=== PATIENT | female | born 1935 | race Caucasian/White ===

== ENCOUNTER 2017-03-13 15:53 | Inpatient (IN) | payer MEDICARE, OTHER ==
[2017-03-13] MEDS ORDERED: ALBUTEROL NEB SOL 2.5MG/3ML 1 VIAL SOL NEB PRN (16:20)
[2017-03-13] MEDS ORDERED: SODIUM CHLORIDE 0.9% 500 ML 500 ML IV ONE (17:36)
[2017-03-13] MEDS: CEFTRIAXONE 1 GM (PREMIX) 1 GM/50 ML SOL IV SCH (17:56)
[2017-03-13] MEDS: SODIUM CHLORIDE 0.9% FLUSH 10 ML SOL IV SCH ×2 (17:56→21:01)
[2017-03-13] MEDS: ALBUTEROL/IPRATROPIUM 1 VIAL SOL INH SCH ×2 (18:13→21:24)
[2017-03-13] MEDS: SOLUMEDROL 125 MG/2 ML 125 MG/2 ML PDS IV SCH (21:01)
[2017-03-13] MEDS: AZITHROMYCIN 250 MG TAB PO SCH (21:29)
[2017-03-14 07:19] LABS: BASOPHILS % (AUTO) 0 % (0-3); CALCIUM 8.5 mg/dl (8.5-10.1); EOSINOPHILS % (AUTO) 0 % (0-9); HEMATOCRIT 39 % (35-47); MEAN CORPUSCULAR HGB CONC 32.2 gm/dl (32.0-36.0); MONOCYTES % (AUTO) 1.8 % (0-12); NEUTROPHILS % (AUTO) 92.4 % (37-80); POTASSIUM 3.9 mMol/L (3.5-5.1)
[2017-03-14 07:22] LABS: MEAN CORPUSCULAR VOLUME 80 fL (81-99)
[2017-03-14] MEDS: SODIUM CHLORIDE 0.9% FLUSH 10 ML SOL IV SCH ×4 (07:59→16:06)
[2017-03-14] MEDS: FUROSEMIDE 20 MG TAB PO SCH (08:46)
[2017-03-14] MEDS: ATENOLOL 25 MG TAB PO SCH (08:46)
[2017-03-14] MEDS: LEVOTHYROXINE SODIUM 50 MCG TAB PO SCH (08:47)
[2017-03-14] MEDS: SOLUMEDROL 125 MG/2 ML 125 MG/2 ML PDS IV SCH ×2 (08:47→20:54)
[2017-03-14] MEDS: MULTIVITAMIN2 1 EA TAB PO SCH (08:47)
[2017-03-14] MEDS: AZITHROMYCIN 250 MG TAB PO SCH (08:47)
[2017-03-14] MEDS: ALBUTEROL/IPRATROPIUM 1 VIAL SOL INH SCH ×4 (09:42→20:54)
[2017-03-14 10:39] LABS: APPEARANCE,URINE Clear; BILIRUBIN,URINE 1+ (NEGATIVE); COLOR,URINE Dark yellow; GLUCOSE, URINE (UA) NEGATIVE (NEGATIVE); KETONES,URINE NEGATIVE (NEGATIVE); LEUKOCYTE ESTERASE ,URINE NEGATIVE (NEGATIVE); NITRATE,URINE NEGATIVE (NEGATIVE); OCCULT BLOOD,URINE NEGATIVE (NEG-TRACE); PH,URINE 5.5
[2017-03-14 10:57] LABS: ICTOTEST,URINE NEGATIVE (NEGATIVE); RBC,URINE 0-2 (0-3AV/HPF)
[2017-03-14] MEDS ORDERED: SODIUM CHLORIDE 0.9% 500 ML 500 ML IV ONE (11:40)
[2017-03-14] MEDS: CEFTRIAXONE 1 GM (PREMIX) 1 GM/50 ML SOL IV SCH (16:06)
[2017-03-15] MEDS: SODIUM CHLORIDE 0.9% FLUSH 10 ML SOL IV SCH ×4 (06:43→21:24)
[2017-03-15] MEDS: ALBUTEROL/IPRATROPIUM 1 VIAL SOL INH SCH ×4 (09:44→21:20)
[2017-03-15] MEDS: SOLUMEDROL 125 MG/2 ML 125 MG/2 ML PDS IV SCH ×2 (09:49→21:24)
[2017-03-15] MEDS: LEVOTHYROXINE SODIUM 50 MCG TAB PO SCH (09:50)
[2017-03-15] MEDS: AZITHROMYCIN 250 MG TAB PO SCH (09:50)
[2017-03-15] MEDS: FUROSEMIDE 20 MG TAB PO SCH (09:50)
[2017-03-15] MEDS: MULTIVITAMIN2 1 EA TAB PO SCH (09:50)
[2017-03-15] MEDS: ATENOLOL 25 MG TAB PO SCH (09:50)
[2017-03-15] MEDS: CEFTRIAXONE 1 GM (PREMIX) 1 GM/50 ML SOL IV SCH (15:48)
[2017-03-16] MEDS: SODIUM CHLORIDE 0.9% FLUSH 10 ML SOL IV SCH ×2 (05:35→11:30)
[2017-03-16 07:20] LABS: CALCIUM 8.7 mg/dl (8.5-10.1)
[2017-03-16 07:23] LABS: HEMATOCRIT 38 % (35-47); MEAN CORPUSCULAR HGB CONC 32.1 gm/dl (32.0-36.0)
[2017-03-16 07:31] LABS: MEAN CORPUSCULAR VOLUME 81 fL (81-99)
[2017-03-16 07:42] LABS: LYMPHOCYTES % (MANUAL) 3 % (10-50)
[2017-03-16 07:43] LABS: BASOPHILS % (MANUAL) 0 % (0-3); EOSINOPHILS % (MANUAL) 0 % (0-9); NORMAL RBCS PRESENT
[2017-03-16] MEDS: ALBUTEROL/IPRATROPIUM 1 VIAL SOL INH SCH ×2 (11:30→15:40)
[2017-03-16] MEDS: FUROSEMIDE 20 MG TAB PO SCH (11:31)
[2017-03-16] MEDS: ATENOLOL 25 MG TAB PO SCH (11:31)
[2017-03-16] MEDS: LEVOTHYROXINE SODIUM 50 MCG TAB PO SCH (11:31)
[2017-03-16] MEDS: MULTIVITAMIN2 1 EA TAB PO SCH (11:31)
[2017-03-16] MEDS: AZITHROMYCIN 250 MG TAB PO SCH (11:32)
[2017-03-16 15:43] VITALS: RESP 20
[2017-03-16 16:05] VITALS: PULSE 78; O2SAT 96
[2017-03-16 16:11] VITALS: BP 122/75; TEMP 97.8
== END 2017-03-16 16:35 | disposition home or self-care (01) | DRG 194 ==
LOC: ACUTE CARE 16:08
PROVIDERS: ADMIT Family Medicine; ATTEND Family Medicine
PROC: F02Z1ZZ Dressing Assessment (ICD-10-PCS; principal; 2017-03-16)
PROC: F02Z0ZZ Bathing/Showering Assessment (ICD-10-PCS; 2017-03-16)
PROC: F02Z3ZZ Grooming/Personal Hygiene Assessment (ICD-10-PCS; 2017-03-16)
PROC: F01ZDFZ Gait and/or Balance Assessment using Assistive, Adaptive, Supportive or Protective Equipment (ICD-10-PCS; 2017-03-16)
PROC: F01ZBZZ Bed Mobility Assessment (ICD-10-PCS; 2017-03-16)
PROC: F01ZCZZ Transfer Assessment (ICD-10-PCS; 2017-03-16)
DX: J18.1 Lobar pneumonia, unspecified organism (principal); I50.32 Chronic diastolic (congestive) heart failure; L89.311 Pressure ulcer of right buttock, stage 1; J84.10 Pulmonary fibrosis, unspecified; I11.0 Hypertensive heart disease with heart failure; L89.321 Pressure ulcer of left buttock, stage 1; D51.0 Vitamin B12 deficiency anemia due to intrinsic factor deficiency; R63.4 Abnormal weight loss; R60.9 Edema, unspecified; E78.5 Hyperlipidemia, unspecified; E03.9 Hypothyroidism, unspecified
CPT/HCPCS: 36415; 71260; 80048; 81001; 85007; 85025; 85027; 87040; 94150; 94640; 94664; 99070; J0696; J2930; J7603; J7620; Q9967; A6232

== ENCOUNTER 2017-07-22 22:01 | Emergency (ER) | payer MEDICARE, OTHER ==
[2017-07-22 22:12] VITALS: RESP 20
[2017-07-22 23:09] LABS: HEMATOCRIT 34 % (35-47); MEAN CORPUSCULAR HGB CONC 32.9 gm/dl (32.0-36.0); MEAN CORPUSCULAR VOLUME 83 fL (81-99)
[2017-07-22 23:16] LABS: CALCIUM 8.5 mg/dl (8.5-10.1); POTASSIUM 4.1 mMol/L (3.5-5.1)
[2017-07-22 23:19] LABS: APPEARANCE,URINE Slightly Cloudy; BILIRUBIN,URINE NEGATIVE (NEGATIVE); COLOR,URINE Dark yellow; GLUCOSE, URINE (UA) NEGATIVE (NEGATIVE); KETONES,URINE NEGATIVE (NEGATIVE); LEUKOCYTE ESTERASE ,URINE TRACE (NEGATIVE); NITRATE,URINE NEGATIVE (NEGATIVE); OCCULT BLOOD,URINE NEGATIVE (NEG-TRACE); PH,URINE 5.5
[2017-07-22 23:37] LABS: BASOPHILS % (MANUAL) 0 % (0-3); EOSINOPHILS % (MANUAL) 0 % (0-9); LYMPHOCYTES % (MANUAL) 11 % (10-50); NORMAL RBCS PRESENT
[2017-07-22 23:39] VITALS: BP 114/49; PULSE 70; TEMP 99.9; O2SAT 93
[2017-07-22 23:45] LABS: RBC,URINE 0-1 (0-3AV/HPF)
[2017-07-22] MEDS ORDERED: LEVOFLOXACIN 500 MG TAB PO ONE (23:45)
[2017-07-22] MEDS ORDERED: PREDNISONE 20 MG TAB PO ONE (23:45)
[2017-07-22 23:46] LABS: WBC,URINE 0-2 (0-5AV/HPF)
[2017-07-22] MEDS ORDERED: PREDNISONE 20 MG TAB ONE (23:46)
[2017-07-22] MEDS ORDERED: LEVOFLOXACIN 500 MG TAB ONE (23:46)
== END 2017-07-23 00:15 | disposition home or self-care (01) | DRG 191 ==
LOC: ED 22:01
DX: J47.9 Bronchiectasis, uncomplicated (principal); N39.0 Urinary tract infection, site not specified
CPT/HCPCS: 36415; 71010; 80048; 81001; 85007; 85027; 87804; 99283

== ENCOUNTER 2017-08-18 10:31 | Inpatient (IN) | payer MEDICARE, OTHER ==
[2017-08-18] MEDS ORDERED: ALBUTEROL NEB SOL 2.5MG/3ML 1 VIAL SOL NEB PRN (10:41)
[2017-08-18] MEDS ORDERED: SODIUM CHLORIDE 0.9% 1000ML 1,000 ML IV ONE (10:41)
[2017-08-18 11:28] LABS: BASOPHILS % (AUTO) 2 % (0-3); EOSINOPHILS % (AUTO) 0 % (0-9); HEMATOCRIT 44 % (35-47); MEAN CORPUSCULAR VOLUME 83 fL (81-99); MONOCYTES % (AUTO) 7.2 % (0-12)
[2017-08-18] MEDS: SOLUMEDROL 125 MG/2 ML 125 MG/2 ML PDS IV SCH ×2 (11:37→20:14)
[2017-08-18] MEDS: SODIUM CHLORIDE 0.9% FLUSH 10 ML SOL IV SCH ×2 (11:37→19:34)
[2017-08-18 11:58] LABS: ALBUMIN 2.8 gm/dl (3.4-5.0); CALCIUM 8.7 mg/dl (8.5-10.1); POTASSIUM 3.4 mMol/L (3.5-5.1)
[2017-08-18] MEDS ORDERED: CEFTAZIDIME 1 GM PDS IV SCH (12:00)
[2017-08-18] MEDS ORDERED: ONDANSETRON HCL 4 MG/2 ML SOL IV PRN (12:07)
[2017-08-18] MEDS: CEFTAZIDIME 1 GM PDS IV SCH ×2 (13:02→20:15)
[2017-08-18] MEDS: ALBUTEROL/IPRATROPIUM 1 VIAL SOL INH SCH ×3 (13:02→20:30)
[2017-08-18] MEDS ORDERED: PATIENT EDUCATION 1 MISC PRN (16:00)
[2017-08-18] MEDS ORDERED: POTASSIUM CHLORIDE 2 MEQ/ML SOL IV ONE (17:25)
[2017-08-18] MEDS: SODIUM CHLORIDE 0.45% 1000 ML 1,000 ML with POTASSIUM CHLORIDE 2 MEQ/ML 20 MEQ IV SCH (17:27)
[2017-08-18] MEDS: BUDESONIDE 0.5 MG/2 ML AMPUL.NEB INH SCH (20:22)
[2017-08-18] MEDS: THIAMINE 100 MG TAB PO SCH (20:22)
[2017-08-19] MEDS: SODIUM CHLORIDE 0.45% 1000 ML 1,000 ML with POTASSIUM CHLORIDE 2 MEQ/ML 20 MEQ IV SCH (03:00)
[2017-08-19] MEDS: SODIUM CHLORIDE 0.9% FLUSH 10 ML SOL IV SCH ×4 (03:32→23:16)
[2017-08-19] MEDS: SOLUMEDROL 125 MG/2 ML 125 MG/2 ML PDS IV SCH (03:32)
[2017-08-19] MEDS: CEFTAZIDIME 1 GM PDS IV SCH ×3 (04:37→20:19)
[2017-08-19] MEDS: LEVOTHYROXINE SODIUM 50 MCG TAB PO SCH ×2 (06:47→09:17)
[2017-08-19] MEDS: PREDNISONE 20 MG TAB PO SCH (09:17)
[2017-08-19] MEDS: METOPROLOL SUCCINATE 50 MG ER TAB PO SCH (09:17)
[2017-08-19] MEDS: MULTIVITAMIN2 1 EA TAB PO SCH (09:17)
[2017-08-19] MEDS: THIAMINE 100 MG TAB PO SCH (09:18)
[2017-08-19] MEDS: ALBUTEROL/IPRATROPIUM 1 VIAL SOL INH SCH ×4 (09:19→20:24)
[2017-08-19] MEDS: BUDESONIDE 0.5 MG/2 ML AMPUL.NEB INH SCH ×2 (09:20→20:35)
[2017-08-19 20:57] LABS: MAGNESIUM 2.1 mg/dl (1.8-2.4)
[2017-08-19] MEDS ORDERED: LORAZEPAM 2 MG/ML SOL ONE (23:15)
[2017-08-19] MEDS: LORAZEPAM 2 MG/ML SOL IV PRN (23:16)
[2017-08-20] MEDS: SODIUM CHLORIDE 0.9% FLUSH 10 ML SOL IV SCH ×4 (04:25→20:10)
[2017-08-20] MEDS: CEFTAZIDIME 1 GM PDS IV SCH ×3 (04:25→20:10)
[2017-08-20 07:30] LABS: CALCIUM 8.1 mg/dl (8.5-10.1); HEMATOCRIT 37 % (35-47); MEAN CORPUSCULAR HGB CONC 33.5 gm/dl (32.0-36.0); MEAN CORPUSCULAR VOLUME 82 fL (81-99)
[2017-08-20 08:30] LABS: BASOPHILS % (MANUAL) 0 % (0-3); EOSINOPHILS % (MANUAL) 0 % (0-9); LYMPHOCYTES % (MANUAL) 4 % (10-50); NORMAL RBCS PRESENT
[2017-08-20] MEDS: LEVOTHYROXINE SODIUM 50 MCG TAB PO SCH (08:38)
[2017-08-20] MEDS: METOPROLOL SUCCINATE 50 MG ER TAB PO SCH (08:39)
[2017-08-20] MEDS: PREDNISONE 20 MG TAB PO SCH (08:39)
[2017-08-20] MEDS: MULTIVITAMIN2 1 EA TAB PO SCH (08:39)
[2017-08-20] MEDS ORDERED: QUETIAPINE FUMARATE 25 MG TAB ONE (08:42)
[2017-08-20] MEDS: BUDESONIDE 0.5 MG/2 ML AMPUL.NEB INH SCH ×2 (08:43→21:41)
[2017-08-20] MEDS: ALBUTEROL/IPRATROPIUM 1 VIAL SOL INH SCH ×4 (08:44→21:48)
[2017-08-20] MEDS ORDERED: QUETIAPINE FUMARATE 25 MG TAB PO SCH (09:00)
[2017-08-20] MEDS: THIAMINE 100 MG TAB PO SCH (09:13)
[2017-08-20 09:23] LABS: APPEARANCE,URINE Clear; BILIRUBIN,URINE NEGATIVE (NEGATIVE); COLOR,URINE Yellow; GLUCOSE, URINE (UA) NEGATIVE (NEGATIVE); KETONES,URINE TRACE (NEGATIVE); LEUKOCYTE ESTERASE ,URINE NEGATIVE (NEGATIVE); NITRATE,URINE NEGATIVE (NEGATIVE); OCCULT BLOOD,URINE NEGATIVE (NEG-TRACE); UROBILINOGEN,URINE 0.2 (0.2-1.0 EU)
[2017-08-20 09:37] LABS: RBC,URINE 0-1 (0-3AV/HPF); WBC,URINE 0-3 (0-5AV/HPF)
[2017-08-20] MEDS: QUETIAPINE FUMARATE 25 MG TAB PO SCH (21:41)
[2017-08-21] MEDS: CEFTAZIDIME 1 GM PDS IV SCH ×3 (04:08→19:52)
[2017-08-21] MEDS: SODIUM CHLORIDE 0.9% FLUSH 10 ML SOL IV SCH ×4 (04:08→19:52)
[2017-08-21] MEDS: LEVOTHYROXINE SODIUM 50 MCG TAB PO SCH (06:42)
[2017-08-21] MEDS: THIAMINE 100 MG TAB PO SCH (08:06)
[2017-08-21] MEDS: METOPROLOL SUCCINATE 50 MG ER TAB PO SCH (08:06)
[2017-08-21] MEDS: MULTIVITAMIN2 1 EA TAB PO SCH (08:06)
[2017-08-21] MEDS: ALBUTEROL/IPRATROPIUM 1 VIAL SOL INH SCH ×4 (08:07→20:22)
[2017-08-21] MEDS: BUDESONIDE 0.5 MG/2 ML AMPUL.NEB INH SCH ×2 (08:07→20:01)
[2017-08-21] MEDS: QUETIAPINE FUMARATE 25 MG TAB PO SCH (20:34)
[2017-08-22] MEDS: SODIUM CHLORIDE 0.9% FLUSH 10 ML SOL IV SCH ×3 (04:30→21:20)
[2017-08-22] MEDS: CEFTAZIDIME 1 GM PDS IV SCH ×3 (04:30→20:03)
[2017-08-22] MEDS: LEVOTHYROXINE SODIUM 50 MCG TAB PO SCH (07:23)
[2017-08-22 07:32] LABS: CALCIUM 7.9 mg/dl (8.5-10.1)
[2017-08-22 07:54] LABS: BASOPHILS % (AUTO) 1 % (0-3); EOSINOPHILS % (AUTO) 1 % (0-9); HEMATOCRIT 39 % (35-47); MEAN CORPUSCULAR HGB CONC 31.5 gm/dl (32.0-36.0); MEAN CORPUSCULAR VOLUME 88 fL (81-99); MONOCYTES % (AUTO) 8.7 % (0-12); NEUTROPHILS % (AUTO) 81.2 % (37-80)
[2017-08-22] MEDS: METOPROLOL SUCCINATE 50 MG ER TAB PO SCH (09:11)
[2017-08-22] MEDS: THIAMINE 100 MG TAB PO SCH (09:11)
[2017-08-22] MEDS: MULTIVITAMIN2 1 EA TAB PO SCH (09:11)
[2017-08-22] MEDS: ALBUTEROL/IPRATROPIUM 1 VIAL SOL INH SCH ×4 (09:18→20:02)
[2017-08-22] MEDS: BUDESONIDE 0.5 MG/2 ML AMPUL.NEB INH SCH ×2 (09:30→20:05)
[2017-08-22] MEDS: QUETIAPINE FUMARATE 25 MG TAB PO SCH (20:04)
[2017-08-23] MEDS: SODIUM CHLORIDE 0.9% FLUSH 10 ML SOL IV SCH ×4 (03:30→21:09)
[2017-08-23] MEDS: CEFTAZIDIME 1 GM PDS IV SCH ×3 (03:30→21:01)
[2017-08-23] MEDS: LEVOTHYROXINE SODIUM 50 MCG TAB PO SCH (06:12)
[2017-08-23] MEDS: LORAZEPAM 2 MG/ML SOL IV PRN (07:03)
[2017-08-23] MEDS: BUDESONIDE 0.5 MG/2 ML AMPUL.NEB INH SCH ×2 (09:31→21:09)
[2017-08-23] MEDS: ALBUTEROL/IPRATROPIUM 1 VIAL SOL INH SCH ×4 (09:31→21:09)
[2017-08-23] MEDS: MULTIVITAMIN2 1 EA TAB PO SCH (09:33)
[2017-08-23] MEDS: THIAMINE 100 MG TAB PO SCH (09:33)
[2017-08-23] MEDS: METOPROLOL SUCCINATE 50 MG ER TAB PO SCH (09:34)
[2017-08-23] MEDS ORDERED: HYDROXYZINE PAMOATE 25 MG CAP PO PRN (11:48)
[2017-08-23] MEDS: QUETIAPINE FUMARATE 25 MG TAB PO SCH (21:01)
[2017-08-24] MEDS: SODIUM CHLORIDE 0.9% FLUSH 10 ML SOL IV SCH ×2 (03:57→12:17)
[2017-08-24] MEDS: CEFTAZIDIME 1 GM PDS IV SCH ×2 (03:57→12:17)
[2017-08-24 07:15] LABS: BASOPHILS % (AUTO) 1 % (0-3); EOSINOPHILS % (AUTO) 2 % (0-9); HEMATOCRIT 37 % (35-47); MEAN CORPUSCULAR HGB CONC 32.5 gm/dl (32.0-36.0); MEAN CORPUSCULAR VOLUME 88 fL (81-99); MONOCYTES % (AUTO) 7.6 % (0-12); NEUTROPHILS % (AUTO) 80.3 % (37-80)
[2017-08-24 07:19] LABS: CALCIUM 7.7 mg/dl (8.5-10.1); POTASSIUM 4.2 mMol/L (3.5-5.1)
[2017-08-24] MEDS ORDERED: LACTATED RINGERS 1,000 ML IV ONE (08:00)
[2017-08-24] MEDS: METOPROLOL SUCCINATE 50 MG ER TAB PO SCH (09:12)
[2017-08-24] MEDS: THIAMINE 100 MG TAB PO SCH (09:12)
[2017-08-24] MEDS: MULTIVITAMIN2 1 EA TAB PO SCH (09:12)
[2017-08-24] MEDS: LEVOTHYROXINE SODIUM 50 MCG TAB PO SCH (09:12)
[2017-08-24] MEDS: ALBUTEROL/IPRATROPIUM 1 VIAL SOL INH SCH ×4 (09:13→21:01)
[2017-08-24] MEDS: BUDESONIDE 0.5 MG/2 ML AMPUL.NEB INH SCH ×2 (09:13→21:17)
[2017-08-24] MEDS: QUETIAPINE FUMARATE 25 MG TAB PO SCH (21:01)
[2017-08-25 00:12] VITALS: TEMP 97.5
[2017-08-25] MEDS: LEVOTHYROXINE SODIUM 50 MCG TAB PO SCH (06:16)
[2017-08-25 08:18] VITALS: BP 99/59; PULSE 64
[2017-08-25 08:23] VITALS: RESP 18
[2017-08-25] MEDS: ALBUTEROL/IPRATROPIUM 1 VIAL SOL INH SCH (08:36)
[2017-08-25 08:37] VITALS: O2SAT 94
[2017-08-25] MEDS: BUDESONIDE 0.5 MG/2 ML AMPUL.NEB INH SCH (08:38)
== END 2017-08-25 10:05 | disposition hospice, inpatient (51) | DRG 178 ==
LOC: ACUTE CARE 10:42
PROVIDERS: ADMIT Family Medicine; ATTEND Family Medicine
PROC: 0DH67UZ Insertion of Feeding Device into Stomach, Via Natural or Artificial Opening (ICD-10-PCS; principal; 2017-08-18)
PROC: 3E0G76Z Introduction of Nutritional Substance into Upper GI, Via Natural or Artificial Opening (ICD-10-PCS; 2017-08-20)
DX: J15.1 Pneumonia due to Pseudomonas (principal); J47.1 Bronchiectasis with (acute) exacerbation; E46 Unspecified protein-calorie malnutrition; R60.9 Edema, unspecified; R62.7 Adult failure to thrive; R41.0 Disorientation, unspecified; Z95.0 Presence of cardiac pacemaker; Z98.84 Bariatric surgery status
CPT/HCPCS: 36415; 51798; 71010; 80048; 80053; 81001; 83735; 84100; 85007; 85025; 85027; 87040; 94150; 94640; 94664; 99070; J0713; J2060; J2930; J3480; J7620; A6232